=== PATIENT | female | born 1965 | race African-American/Black ===

== ENCOUNTER 2018-04-27 11:36 | Emergency (ER) | payer MEDICARE ==
[~2018-04-27] VITALS: Ht 167.6 cm; Wt 110.0 kg
[2018-04-27 12:24] LABS: BASOPHILS % 0.4 % (0.0-2.0); EOSINOPHILS % 2.1 % (0.0-5.0); HEMATOCRIT. 40.7 % (36.0-48.0); HEMOGLOBIN. 13.7 g/dL (12.0-16.0); LYMPHOCYTES % 27.7 % (20.0-50.0); MEAN CORPUSCULAR HEMOGLOBIN 28.8 pg (28.0-32.0); MEAN CORPUSCULAR VOLUME 85.7 fL (81.0-99.0); MEAN PLATELET VOLUME 8.5 fl (7.4-10.4); MONOCYTES % 6.6 % (2.0-8.0); NEUTROPHILS % 63.2 % (40.0-76.0); PLATELET 251 x1000/uL (130-400); RED BLOOD CELL COUNT 4.76 mill/uL (4.2-5.4); RED CELL DISTRIBUTION WIDTH 13.2 % (11.6-14.6)
[2018-04-27 12:30] LABS: CHLORIDE 100 mEq/L (98-107)
[2018-04-27 12:31] LABS: PROTHROMBIN TIME 10.3 sec (9.4-11.6)
[2018-04-27 12:34] LABS: ETHANOL BLOOD < 10 mg/dL
[2018-04-27 12:37] LABS: LDL CHOLESTEROL 155 mg/dL (5-100)
[2018-04-27 15:57] LABS: CLARITY URINE CLOUDY (CLEAR); COLOR URINE YELLOW (YELLOW); KETONES URINE NEGATIVE (NEGATIVE); LEUKOCYTE ESTERASE URINE 1+ (NEGATIVE); NITRITE URINE NEGATIVE (NEGATIVE); OCCULT BLOOD URINE NEGATIVE (NEGATIVE); PROTEIN URINE NEGATIVE (NEGATIVE); SPECIFIC GRAVITY URINE 1.019 (1.005-1.030); UROBILINOGEN URINE 0.2 E.U./dL (0.2-1.0)
[2018-04-27 16:11] LABS: *AMPHETAMINES SCREEN URINE NEGATIVE (NEGATIVE)
[2018-04-27 16:12] LABS: *BARBITURATES SCREEN URINE NEGATIVE (NEGATIVE); *BENZODIAZEPINES SCREEN URINE NEGATIVE (NEGATIVE); *COCAINE SCREEN URINE NEGATIVE (NEGATIVE); OPIATES URINE SCREEN NEGATIVE (NEGATIVE)
[2018-04-27 16:13] LABS: CANNABINOID URINE SCREEN NEGATIVE (NEGATIVE); METHADONE URINE SCREEN NEGATIVE (NEGATIVE); PHENCYCLIDINE URINE SCREEN NEGATIVE (NEGATIVE)
[2018-04-27 17:34] VITALS: BP 140/65
== END 2018-04-27 17:37 | disposition home or self-care (01) ==
LOC: ER 12:58
DX: G51.0 Bell's palsy (principal); E11.9 Type 2 diabetes mellitus without complications; I10 Essential (primary) hypertension; Z87.820 Personal history of traumatic brain injury
CPT/HCPCS: 36415; 70450; 71045; 80053; 80305; 81003; 83721; 84484; 85025; 85610; 87086; 93005; 99285; G0482

== ENCOUNTER 2020-05-20 02:47 | Emergency (ER) | payer MEDICAID, MEDICARE ==
[~2020-05-20] VITALS: Ht 162.6 cm; Wt 109.0 kg
[2020-05-20 03:00] VITALS: BP 137/81
[2020-05-20] MEDS ORDERED: NA PHOS,M-B/NA PHOS,DI-BA ENEMA 118ML PR SCH (03:30)
[2020-05-20] MEDS ORDERED: MAGNESIUM CITRATE 300ML SOLUTION PO SCH (04:00)
== END 2020-05-20 03:55 | disposition home or self-care (01) ==
LOC: ER 02:47
DX: K59.00 Constipation, unspecified (principal); E78.00 Pure hypercholesterolemia, unspecified; I10 Essential (primary) hypertension
CPT/HCPCS: 99282; 99283

== ENCOUNTER 2022-06-06 10:28 | Emergency (ER) | payer OTHER, MEDICAID ==
[~2022-06-06] VITALS: Ht 157.5 cm; Wt 91.0 kg
[2022-06-06 10:34] VITALS: BP 157/61
[2022-06-06] MEDS ORDERED: ACETAMINOPHEN 325MG TABLET PO ONE (10:45)
[2022-06-06] MEDS ORDERED: TOPUD PO ×3 (11:37→11:58)
== END 2022-06-06 14:41 | disposition home or self-care (01) ==
LOC: ER 10:28
DX: M25.562 Pain in left knee (principal); I10 Essential (primary) hypertension; E78.00 Pure hypercholesterolemia, unspecified; Z86.73 Personal history of transient ischemic attack (TIA), and cerebral infarction without residual deficits; W01.0XXA Fall on same level from slipping, tripping and stumbling without subsequent striking against object, initial encounter; Y93.89 Activity, other specified; Y92.018 Other place in single-family (private) house as the place of occurrence of the external cause
CPT/HCPCS: 73120; 73560; 99284